=== PATIENT | male | born 1960 | race American Indian/Alaskan Native ===

== ENCOUNTER 2021-11-01 09:50 | Emergency (ER) | payer BC, OTHER ==
[2021-11-01] MEDS ORDERED: predniSONE 20 MG TAB PO ONE (15:34)
[2021-11-01] MEDS ORDERED: KETOROLAC 60 MG/2 ML INJ IM ONE (15:34)
[2021-11-01] MEDS ORDERED: CYCLOBENZAPRINE 10 MG TAB PO ONE (15:34)
--- NOTE | 2021-11-01 16:26 | Vascular Lab Report ---
DUPLEX DOPPLER LOWER EXTREMITY VEINS, RIGHT INDICATION / CLINICAL INFORMATION: right lower extremity pain TECHNIQUE: Duplex doppler imaging was performed through the veins of the right lower extremity using venous compression and other maneuvers. COMPARISON: None available. FINDINGS: COMMON FEMORAL VEIN: Negative. SUPERFICIAL FEMORAL VEIN: Negative. POPLITEAL VEIN: Negative. CALF VEINS: Negative. ADDITIONAL FINDINGS: 2.2 cm mildly complex popliteal cyst IMPRESSION: No sonographic evidence for DVT Signer Name: Dangelo Angela MD Signed: 11/01/2021 4:22 PM Workstation Name: [id number]
--- NOTE | 2021-11-01 16:45 | Emergency Department Report ---
ED Lower Extremity HPI - General Chief Complaint: Extremity Problem,Nontraumatic Stated Complaint: RT LEG DISCOMFORT Time Seen by Provider: 11/01/21 15:01 Source: patient Mode of arrival: Ambulatory Limitations: No Limitations - History of Present Illness Initial Comments: This is a 61-year-old male nontoxic, well nourished in appearance, no acute signs of distress presents to the ED with c/o of right leg pain 1 week. Patient stated that he was working and has been heavy lifting when developed pains. Patient denies any injuries or trauma. Patient denies any numbness, tingling, fever, chills, nausea, vomiting, chest pain, shortness of breath, h eadache, stiff neck. Patient denies any joint swelling or joint redness. Patient denies decreased range of motion. Patient stated has decreased gait due to pain. Patient denies any allergies. -: week(s) Injury: Leg: Right Place: work Severity: mild Severity scale (0 -10): 8 Improves With: rest Worsens With: weight bearing, palpation Associated Symptoms: able to partially bear weight. denies: snap/pop sensation, swelling, numbness, tingling, unable to bear weight - Related Data Home Medications Medication Instructions Recorded Confirmed Last Taken Aspirin [Baby Aspirin] 1 tab PO DAILY 10/23/13 10/23/13 10/23/13 Loratadine 1 tab PO DAILY 10/23/13 10/23/13 10/23/13 Methocarbamol 1 tab PO PRN 10/23/13 10/23/13 Unknown Naproxen 1 tab PO PRN 10/23/13 10/23/13 Unknown Verapamil HCl 80 mg PO DAILY 10/23/13 10/23/13 10/23/13 raNITIdine HCL [Ranitidine HCl] 1 cap PO BID 10/23/13 10/23/13 10/23/13 Previous Rx's Medication Instructions Recorded Last Taken Type Cyclobenzaprine [Flexeril] 10 mg PO QHS PRN #10 tab 11/01/21 Unknown Rx Naproxen 500 mg PO Q12H PRN #12 tab 11/01/21 Unknown Rx Allergies Allergy/AdvReac Type Severity Reaction Status Date / Time No Known Allergies Allergy Verified 10/23/13 16:04 ED Review of Systems ROS: Stated complaint: RT LEG DISCOMFORT Other details as noted in HPI Comment: All other systems reviewed and negative Constitutional: denies: chills, fever Eyes: denies: eye pain, eye discharge, vision change ENT: denies: ear pain, throat pain Respiratory: denies: cough, shortness of breath, wheezing Cardiovascular: denies: chest pain, palpitations Endocrine: no symptoms reported Gastrointestinal: denies: abdominal pain, nausea, diarrhea Genitourinary: denies: urgency, dysuria Musculoskeletal: denies: back pain, joint swelling, arthralgia Skin: denies: rash, lesions Neurological: denies: headache, weakness, paresthesias Psychiatric: denies: anxiety, depression Hematological/Lymphatic: denies: easy bleeding, easy bruising ED Past Medical Hx - Past Medical History Hx Hypertension: Yes Hx GERD: Yes Hx Asthma: No - Social History Smoking Status: Current Every Day Smoker - Medications Home Medications: Home Medications Medication Instructions Recorded Confirmed Last Taken Type Aspirin [Baby Aspirin] 1 tab PO DAILY 10/23/13 10/23/13 10/23/13 History Loratadine 1 tab PO DAILY 10/23/13 10/23/13 10/23/13 History Methocarbamol 1 tab PO PRN 10/23/13 10/23/13 Unknown History Naproxen 1 tab PO PRN 10/23/13 10/23/13 Unknown History Verapamil HCl 80 mg PO DAILY 10/23/13 10/23/13 10/23/13 History raNITIdine HCL [Ranitidine HCl] 1 cap PO BID 10/23/13 10/23/13 10/23/13 History Cyclobenzaprine [Flexeril] 10 mg PO QHS PRN #10 tab 11/01/21 Unknown Rx Naproxen 500 mg PO Q12H PRN #12 tab 11/01/21 Unknown Rx ED Physical Exam - General Limitations: No Limitations General appearance: alert, in no apparent distress - Head Head exam: Present: atraumatic, normocephalic - Eye Eye exam: Present: normal appearance - Neck Neck exam: Present: normal inspection, full ROM. Absent: lymphadenopathy - Respiratory Respiratory exam: Absent: respiratory distress - Cardiovascular Cardiovascular Exam: Present: regular rate - Extremities Exam Extremities exam: Present: normal inspection, full ROM, tenderness, normal capillary refill, calf tenderness. Absent: joint swelling - Expanded Lower Extremity Exam Right Hip exam: Present: normal inspection, full ROM, external rotation, internal rotation, pelvic stability. Absent: tenderness, swelling, abrasion, laceration, ecchymosis, deformity, crepidus, dislocation, erythema, shortening Upper Leg exam: Present: normal inspection, full ROM, tenderness. Absent: swelling, abrasion, laceration, ecchymosis, deformity, crepidus, dislocation, erythema Knee exam: Present: normal inspection, full ROM, tenderness, full knee extension. Absent: swelling, abrasion, laceration, ecchymosis, deformity, crepidus, dislocation, erythema, effusion, pain w/ pronation/supination, posterior draw sign, pain/laxity with valgus, pain/laxity with varus Lower Leg exam: Present: normal inspection, full ROM, tenderness. Absent: swelling, abrasion, laceration, ecchymosis, deformity, crepidus, dislocation, erythema, palpable cord, Nancy's sign Ankle exam: Present: normal inspection, full ROM. Absent: tenderness, swelling, abrasion, laceration, ecchymosis, deformity, crepidus, dislocation, erythema, anterior draw sign Foot/Toe exam: Present: normal inspection, full ROM. Absent: tenderness, swelling, abrasion, laceration, ecchymosis, deformity, crepidus, dislocation, erythema, amputation, puncture wound, foreign body, calcaneal tenderness, tenderness at base of 5th metatarsal, nail avulsion, subungual hematoma Neuro vascular tendon exam: Present: no vascular compromise Gait: Positive: observed and limited by pain 1 - pain here 2 - pain here - Back Exam Back exam: Present: normal inspection, full ROM. Absent: tenderness, CVA tenderness (R), CVA tenderness (L), muscle spasm, paraspinal tenderness, vertebral tenderness, rash noted - Neurological Exam Neurological exam: Present: alert, oriented X3 - Psychiatric Psychiatric exam: Present: normal affect, normal mood - Skin Skin exam: Present: warm, dry, intact, normal color. Absent: rash ED Course Vital Signs 11/01/21 11:43 Temperature 97.7 F Pulse Rate 71 Respiratory 16 Rate Blood Pressure 143/102 [Left] O2 Sat by Pulse 97 Oximetry - Reevaluation(s) Reevaluation #1: 11/01/21 16:45 Patient is speaking in full sentences with no signs of distress noted. ED Lower Extremity MDM - Radiology Data [facility] [address] [place] [address] Vascular Lab Report Signed Patient: LARISA CANSECO MR#: [id number] 0 : 1960 Acct:[id number] Age/Sex: 61 / M ADM Date: 11/01/21 Loc: ED Attending Dr: Ordering Physician: TIM HOANG NP Date of Service: 11/01/21 Procedure(s): VL venous duplex LE RT Accession Number(s): [id number] cc: TIM HOANG NP DUPLEX DOPPLER LOWER EXTREMITY VEINS, RIGHT INDICATION / CLINICAL INFORMATION: right lower extremity pain TECHNIQUE: Duplex doppler imaging was performed through the veins of the right lower extremity using venous compression and other maneuvers. COMPARISON: None available. FINDINGS: COMMON FEMORAL VEIN: Negative. SUPERFICIAL FEMORAL VEIN: Negative. POPLITEAL VEIN: Negative. CALF VEINS: Negative. ADDITIONAL FINDINGS: 2.2 cm mildly complex popliteal cyst IMPRESSION: No sonographic evidence for DVT Signer Name: Dangelo Angela MD Signed: 11/01/2021 4:22 PM Workstation Name: [id number] Transcribed By: Dictated By: Dangelo Angela MD Electronically Authenticated By: Dangelo Angela MD Signed Date/Time: 11/01/211621 DD/ 20 TD/TT: - Medical Decision Making 61-year-old male that presents with right leg strain. Patient is stable and was examined by me. Patient is notified of the Doppler ultrasound that does not show DVT and no questions noted by the patient. Patient received medical treatment in ER which stated symptoms improved and subsided. Patient be disch arged with naproxen and Flexeril. Patient was instructed not to operate any machinery while taking Flexeril due to possible drowsiness. Patient was instructed to follow-up with a primary care doctor in 3-5 days or if symptoms worsen and continue return to emergency room as soon as possible. At time of discharge, the patient does not seem toxic or ill in appearance. No acute signs of distress noted. Patient agrees to discharge treatment plan of care. No further questions noted by the patient. Critical care attestation.: If time is entered above; I have spent that time in minutes in the direct care of this critically ill patient, excluding procedure time. ED Disposition Clinical Impression: Muscle strain of right lower leg Qualifiers: Encounter type: initial encounter Qualified Code(s): S86.911A - Strain of unspecified muscle(s) and tendon(s) at lower leg level, right leg, initial encounter Disposition: HOME / SELF CARE / HOMELESS Is pt being admited?: No Does the pt Need Aspirin: No Condition: Stable Instructions: Muscle Strain, [id number], Cyclobenzaprine tablets Additional Instructions: Follow-up with a primary care and orthopedic doctor in 3-5 days or if symptoms worsen and continue return to emergency room as soon as possible. No physical activity that extremity until cleared by orthopedic doctor Prescriptions: Cyclobenzaprine [Flexeril] 10 mg PO QHS PRN #10 tab PRN Reason: Muscle Spasm Naproxen 500 mg PO Q12H PRN #12 tab PRN Reason: Pain , Severe (7-10) Referrals: PRIMARY MD EB [Primary Care Provider] - 3-5 Days KIYA WEBB MD [Staff Physician] - 3-5 Days GERTRUDIS BAE MD [Staff Physician] - 3-5 Days Time of Disposition: 17:04
[2021-11-01 17:35] VITALS: BP 133/89
== END 2021-11-01 17:33 | disposition home or self-care (01) ==
LOC: ED 09:50
DX: S86.911A Strain of unspecified muscle(s) and tendon(s) at lower leg level, right leg, initial encounter (principal); F17.200 Nicotine dependence, unspecified, uncomplicated; I10 Essential (primary) hypertension; X58.XXXA Exposure to other specified factors, initial encounter; Y93.89 Activity, other specified; Y92.89 Other specified places as the place of occurrence of the external cause; Y99.8 Other external cause status
CPT/HCPCS: 93971; 96372; 99283; J1885